=== PATIENT | female | born 1970 ===

== ENCOUNTER 2017-04-15 12:39 | Emergency (ER) | payer BC, OTHER ==
[2017-04-15 13:45] LABS: BASO # 0.1 K/uL (0.0-0.2); EOS % 0.6 % (0.0-4.0); HEMOGLOBIN 12.1 g/dL (12.0-16.0); LYMPH % 28.4 % (20.0-40.0); MEAN CELL VOLUME 82.4 fl (81.0-99.0); MEAN CORPUSCULAR HEMOGLOBIN 26.4 pg (27.0-31.0); MEAN PLATELET VOLUME 9.8 fl (7.2-11.7); MONO # 0.5 K/uL (0.0-0.8); MONO % 7.5 % (0.0-10.0); NEUT # 4.3 K/uL (1.8-7.0); NEUT % 62.5 % (50.0-75.0); NRBC % 0.3 % (0.0-0.0); RBC 4.61 Mil/uL (3.80-5.20); RED CELL DISTRIBUTION WIDTH 15.5 % (11.5-14.5); WHITE BLOOD COUNT 6.9 K/uL (4.8-10.8)
[2017-04-15 13:49] LABS: SQUAMOUS EPITHIAL 2 /hpf (0-5); URINE BILIRUBIN NEGATIVE (NEGATIVE); URINE BLOOD LARGE (NEGATIVE); URINE CLARITY CLEAR (Clear); URINE COLOR STRAW (YELLOW); URINE GLUCOSE (UA) NEG (Normal); URINE LEUKOCYTE ESTERASE NEG Leu/uL (Negative); URINE NITRATE NEGATIVE (NEGATIVE); URINE PROTEIN NEGATIVE (NEGATIVE); URINE UROBILINOGEN 0.2-1.0 mg/dL (0.2-1.0)
[2017-04-15 13:56] LABS: ALB/GLOB RATIO 1.2 (1.0-2.1); ALBUMIN 4.7 g/dL (3.5-5.0); ALT/SGPT 45 U/L (9-52); AST/SGOT 29 U/L (14-36); BLOOD UREA NITROGEN 13 mg/dl (7-17); CALCIUM 9.6 mg/dL (8.4-10.2); GFR AFRICAN-AMERICAN > 60; GFR NON-AFRICAN AMERICAN > 60
[2017-04-15 14:03] LABS: PROTHROMBIN TIME 10.9 Seconds (9.8-13.1)
[2017-04-15 14:04] LABS: PARTIAL THROMBOPLASTIN TIME 33.8 Seconds (25.6-37.1)
--- NOTE | 2017-04-15 15:07 | ED PDOC ---
HPI: General Adult Time Seen by Provider: 04/15/17 13:08 Chief Complaint (Nursing): Dizziness/Lightheaded Chief Complaint (Provider): Jaw Pain History Per: Patient History/Exam Limitations: no limitations Onset/Duration Of Symptoms: Sudden Onset Current Symptoms Are (Timing): Still Present Additional Complaint(s): Maggie Whaley is a 47 y/o female presenting to the ER on 04/15/2017 with complaints of bilateral jaw pain with radiation to her shoulders bilaterally onset yesterday. She denies any throat pain, difficulty swallowing, fever, or trauma. She did not take any pain medications prior to arrival. Past Medical History Reviewed: Historical Data, Nursing Documentation, Vital Signs Vital Signs: Last Vital Signs Temp 98.0 F 04/15/17 12:43 Pulse 82 04/15/17 12:43 Resp 16 04/15/17 12:43 BP 123/82 04/15/17 12:43 Pulse Ox 100 04/15/17 15:22 - Medical History PMH: Anxiety - Surgical History Surgical History: No Surg Hx - Family History Family History: States: Unknown Family Hx - Social History Current smoker - smoking cessation education provided: No Alcohol: None Drugs: Denies - Home Medications Home Medications: Ambulatory Orders Medication Instructions Recorded Naproxen [Naprosyn] 500 mg PO BID PRN #15 tablet 04/15/17 - Allergies Allergies/Adverse Reactions: Allergies Allergy/AdvReac Type Severity Reaction Status Date / Time No Known Allergies Allergy Verified 04/15/17 12:42 Review of Systems ROS Statement: Except As Marked, All Systems Reviewed And Found Negative Constitutional: Negative for: Fever ENT: Negative for: Throat Pain Musculoskeletal: Positive for: Shoulder Pain (bilat ), Other ((+) jaw pain bilat ) Neurological: Negative for: Weakness, Numbness Physical Exam - Reviewed Nursing Documentation Reviewed: Yes Vital Signs Reviewed: Yes - Physical Exam Appears: Positive for: Non-toxic, No Acute Distress Head Exam: Positive for: ATRAUMATIC, NORMOCEPHALIC Skin: Positive for: Normal Color. Negative for: Rash Eye Exam: Positive for: Normal appearance, EOMI, PERRL ENT: Positive for: Pharynx Is (clear ) Neck: Positive for: Normal, Painless ROM, Supple Cardiovascular/Chest: Positive for: Regular Rate, Rhythm. Negative for: Murmur Respiratory: Positive for: Normal Breath Sounds. Negative for: Wheezing, Respiratory Distress Gastrointestinal/Abdominal: Positive for: Normal Exam, Soft. Negative for: Tenderness Extremity: Positive for: Normal ROM. Negative for: Deformity, Swelling Neurologic/Psych: Positive for: Alert, Oriented. Negative for: Motor/Sensory Deficits - Laboratory Results Result Diagrams: 04/15/17 13:35 04/15/17 13:35 - ECG Interpretation Of ECG: NSR @ 75, IRBBB, no ST-T changes. O2 Sat by Pulse Oximetry: 100 Pulse Ox Interpretation: Normal Medical Decision Making Medical Decision Makin:08 Initial Impression- 47 y/o female with jaw pain Initial Plan- * EKG * Urine Dip * Urine Preg * Toradol 15 mg IV 15:21 CT has been ordered because pt is now complaining of pain down both arms for the past month. 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 Additionally, pt states sometimes she wakes up with numbness and pain in both arms. 16:05 CT CERVICAL SPINE FINDINGS: VERTEBRAE: No evidence of acute compression fracture nor retropulsed fragments. Vertebral bodies exhibit normal stature. There is slight straightening of the normal cervical lordosis which could be due to patient positioning gantry however underlying element of muscle spasm may contribute. DISCS/SPINAL CANAL/NEURAL FORAMINA: Disc space heights maintained. No disc herniations. Small broad-based disc bulge ridge complex is seen at the C6-C7 and C5-C6 levels. Changes do not result in significant canal stenosis nor cord compression. Exit foramina are adequate. PARASPINAL SOFT TISSUES: Prevertebral and paraspinal soft tissues grossly unremarkable. . OTHER FINDINGS: Lung apices are clear. IMPRESSION: No acute compression fractures no retropulsed fragments. Minimal broad-based disc bulge ridge complex is seen at the C5-C6 and C6-C7 levels as above. No evidence of canal compromise nor cord compression. No evidence of foraminal stenosis. Documented by Chandni Pino, acting as a scribe for Goldie Dave MD All medical record entries made by the Scribe were at my direction and personally dictated by me. I have reviewed the chart and agree that the record accurately reflects my personal performance of the history, physical exam, medical decision making, and the department course for this patient. I have also personally directed, reviewed, and agree with the discharge instructions and disposition. Disposition - Clinical Impression Clinical Impression: Mandibular pain - Patient ED Disposition Is Patient to be Admitted: No - Disposition Referrals: Enoch Moreland MD [Family Provider] - Disposition: Routine/Home Disposition Time: 15:07 Condition: STABLE Prescriptions: Naproxen [Naprosyn] 500 mg PO BID PRN #15 tablet PRN Reason: Pain, Moderate (4-7) Instructions: Musculoskeletal Pain (ED) Print Language: BERMUDIAN
--- NOTE | 2017-04-15 16:00 | CT ---
PROCEDURE: CT scan of the cervical spine dated 04/15/2017 HISTORY: Bilateral arm pain. . . COMPARISON: None available. TECHNIQUE: Contiguous helical/transaxial l computed tomography images were obtained of the cervical spine without the use of intravenous contrast. Coronal and sagittal reformatted images were created and reviewed. Radiation dose: Total exam DLP = 351.69 mGy-cm. This CT exam was performed using one or more of the following dose reduction techniques: Automated exposure control, adjustment of the mA and/or kV according to patient size, and/or use of iterative reconstruction technique. FINDINGS: VERTEBRAE: No evidence of acute compression fracture nor retropulsed fragments. Vertebral bodies exhibit normal stature. There is slight straightening of the normal cervical lordosis which could be due to patient positioning gantry however underlying element of muscle spasm may contribute. DISCS/SPINAL CANAL/NEURAL FORAMINA: Disc space heights maintained. No disc herniations. Small broad-based disc bulge ridge complex is seen at the C6-C7 and C5-C6 levels. Changes do not result in significant canal stenosis nor cord compression. Exit foramina are adequate. PARASPINAL SOFT TISSUES: Prevertebral and paraspinal soft tissues grossly unremarkable. . OTHER FINDINGS: Lung apices are clear. IMPRESSION: No acute compression fractures no retropulsed fragments. Minimal broad-based disc bulge ridge complex is seen at the C5-C6 and C6-C7 levels as above. No evidence of canal compromise nor cord compression. No evidence of foraminal stenosis.
[2017-04-15 16:32] VITALS: BP 108/65; PULSE 65; RESP 18; TEMP 98; O2SAT 99
--- NOTE | 2017-04-17 11:50 | CARD ---
APPROVED REPORT EKG Measurement Heart [id number] <Conclusion> Normal sinus rhythm Incomplete right bundle branch block Borderline ECG
== END 2017-04-15 16:32 | disposition home or self-care (01) ==
LOC: H.ER 12:39
DX: R68.84 Jaw pain (principal); R42 Dizziness and giddiness

== ENCOUNTER 2019-01-27 15:20 | Emergency (ER) | payer BC, OTHER ==
[2019-01-27 15:32] VITALS: RESP 19; TEMP 97.7; O2SAT 100
[2019-01-27 17:16] LABS: BASO % 0.7 % (0.0-2.0); EOS # 0.1 K/uL (0.0-0.7); EOS % 0.9 % (0.0-4.0); HEMOGLOBIN 12.7 g/dL (12.0-16.0); LYMPH # 1.8 K/uL (1.0-4.3); LYMPH % 30.4 % (20.0-40.0); MEAN CELL VOLUME 87.1 fl (81.0-99.0); MEAN CORPUSCULAR HEMOGLOBIN 28.9 pg (27.0-31.0); MEAN CORPUSCULAR HGB CONC 33.2 g/dL (33.0-37.0); MEAN PLATELET VOLUME 10.1 fl (7.2-11.7); MONO # 0.4 K/uL (0.0-0.8); MONO % 7.5 % (0.0-10.0); NEUT # 3.6 K/uL (1.8-7.0); NEUT % 60.5 % (50.0-75.0); NRBC % 0.2 % (0.0-0.0); RBC 4.39 Mil/uL (3.80-5.20); RED CELL DISTRIBUTION WIDTH 13.9 % (11.5-14.5); WHITE BLOOD COUNT 5.9 K/uL (4.8-10.8)
--- NOTE | 2019-01-27 17:22 | ED PDOC ---
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 Patient notes she has never seen her PMD for this issue, and otherwise denies headache, dizziness, weakness, any other numbness, and additional complaints. PMD: Enoch Moreland NIHSS Stroke Scale - Date/Time Evaluation Performed Date Performed: 01/27/19 Time Performed: 15:40 When Was NIHSS Performed: Baseline - How Severe is the Stroke Level of Consciousness: 0=Alert LOC to Questions: 0=Both comments correct LOC to commands: 0=Obeys both correctly Best Gaze: 0=Normal Visual: 0=No visual loss Facial: 0=Normal Motor Arm - Left: 0=No drift Motor Arm - Right: 0=No drift Motor Leg - Left: 0=No drift Motor Leg - Right: 0=No drift Limb Ataxia: 0=Absent Sensory: 0=Normal Best Language: 0=No aphasia Dysarthia: 0=Normal articulation Extinction & Inattention (Neglect): 0=Normal, no object Score: 0 Past Medical History Reviewed: Historical Data, Nursing Documentation, Vital Signs Vital Signs: Last Vital Signs Temp 97.7 F 01/27/19 15:29 Pulse 65 01/27/19 15:29 Resp 19 01/27/19 15:29 BP 132/87 01/27/19 15:29 Pulse Ox 100 01/27/19 15:29 - Medical History PMH: Anxiety Other PMH: ovarian cysts - Surgical History Other surgeries: ovarian cyst removal - Family History Family History: States: Unknown Family Hx - Social History Current smoker - smoking cessation education provided: No Alcohol: None Drugs: Denies - Home Medications Home Medications: Ambulatory Orders Medication Instructions Recorded Naproxen [Naprosyn] 500 mg PO BID PRN #15 tablet 04/15/17 - Allergies Allergies/Adverse Reactions: Allergies Allergy/AdvReac Type Severity Reaction Status Date / Time No Known Allergies Allergy Verified 04/15/17 12:42 Review of Systems ROS Statement: Except As Marked, All Systems Reviewed And Found Negative Musculoskeletal: Positive for: Hand Pain (bilateral, intermittent) Neurological: Positive for: Numbness (to bilateral hands, intermittent ). Negative for: Weakness, Headache, Dizziness Physical Exam - Reviewed Nursing Documentation Reviewed: Yes Vital Signs Reviewed: Yes - Physical Exam Appears: Positive for: No Acute Distress Head Exam: Positive for: ATRAUMATIC, NORMAL INSPECTION, NORMOCEPHALIC Skin: Positive for: Normal Color, Warm. Negative for: Rash Eye Exam: Positive for: EOMI, Normal appearance, PERRL Neck: Positive for: Normal, Painless ROM, Supple Cardiovascular/Chest: Positive for: Regular Rate, Rhythm Respiratory: Positive for: Normal Breath Sounds. Negative for: Respiratory Distress Gastrointestinal/Abdominal: Positive for: Normal Exam, Soft. Negative for: Tenderness Back: Positive for: Normal Inspection Extremity: Positive for: Normal ROM (all extremities) Neurological/Psych: Positive for: Awake, Alert, Symmetric/Intact Strength (5/5 x4 extremities), Oriented (x3), Gait (steady, unassisted), Cerebellar Tests (intact), rn hemodialysis charge II-XII (intact). Negative for: Motor/Sensory Deficits, Facial Dr oop - Laboratory Results Result Diagrams: 01/27/19 17:10 01/27/19 17:10 - ECG O2 Sat by Pulse Oximetry: 100 (RA) Pulse Ox Interpretation: Normal Medical Decision Making Medical Decision Making: Time: 1637 Initial Impression: bilateral intermittant hand numbness, r/o stroke, rule out diabetes, electrolyte abnormality Initial Plan: --CT head without contrast --CMP --CBC with differential --Urine culture --Urinalysis --Patient advised to follow up with neurologist for further evaluation 1852 CT head: Impression: no acute intracranial abnormality. If there is a persistent focal neurological deficit and an ongoing clinical concern for acute infarction, an MRI of the brain without intravenous contrast would be a more sensitive modality for evaluation of hyperacute/acute ischemic infarction 2010 on reevaluation pt sleeping in no distress pt and daughter at bedside aware of results Labs reviewed for BUN elevated at 22. Urine does not appear to be infected given normal WBC and rare bacteria. Patient to be discharged with neuro outpatient follow up. Return parameters and plan discussed with both patient and daughter who both verbalize agreement and understanding. Scribe Attestation: Documented by Linda Galdamez, acting as a scribe for Ayad Ware MD. Provider Scribe Attestation: All medical record entries made by the Scribe were at my direction and personally dictated by me. I have reviewed the chart and agree that the record accurately reflects my personal performance of the history, physical exam, medical decision making, and the department course for this patient. I have also personally directed, reviewed, and agree with the discharge instructions and disposition. Disposition - Clinical Impression Clinical Impression: Hand paresthesia - Patient ED Disposition Is Patient to be Admitted: No Counseled Patient/Family Regarding: Studies Performed, Diagnosis, Need For Followup - Disposition Referrals: Director Of Flight Operations Service [Outside] Anne Camarillo MD [Medical Doctor] - Disposition: Routine/Home Disposition Time: 20:15 Condition: IMPROVED Additional Instructions: follow up with outpatient neurologist in 1-2 days also follow up with Dr Moreland return to the ED with any worsening or concerning symptoms Instructions: Paresthesias (DC) Forms: [employer] (Setswana), [employer] (Martiniquais), [facility] ED School/Work Excuse Print Language: BHUTANESE
[2019-01-27 17:30] LABS: SQUAMOUS EPITHIAL 6 /hpf (0-5); URINE BACTERIA RARE (<OCC); URINE BILIRUBIN NEGATIVE (NEGATIVE); URINE BLOOD SMALL (NEGATIVE); URINE CLARITY SLIGHTY-CLOUDY (Clear); URINE COLOR YELLOW (YELLOW); URINE GLUCOSE (UA) NEG (NEGATIVE); URINE LEUKOCYTE ESTERASE SMALL Leu/uL (Negative); URINE PROTEIN NEGATIVE (NEGATIVE); URINE UROBILINOGEN 0.2-1.0 mg/dL (0.2-1.0)
[2019-01-27 17:36] LABS: ALB/GLOB RATIO 1.2 (1.0-2.1); ALBUMIN 4.4 g/dL (3.5-5.0); ALT/SGPT 43 U/L (9-52); AST/SGOT 30 U/L (14-36); BLOOD UREA NITROGEN 22 mg/dl (7-17); CALCIUM 9.6 mg/dL (8.4-10.2); GFR NON-AFRICAN AMERICAN > 60
--- NOTE | 2019-01-27 18:56 | CT ---
Date of service: 01/27/2019 PROCEDURE: CT HEAD WITHOUT CONTRAST. HISTORY: hand numbness COMPARISON: None available. TECHNIQUE: Axial computed tomography images were obtained through the head/brain without intravenous contrast. Radiation dose: Total exam DLP = 863.67 mGy-cm. This CT exam was performed using one or more of the following dose reduction techniques: Automated exposure control, adjustment of the mA and/or kV according to patient size, and/or use of iterative reconstruction technique. FINDINGS: HEMORRHAGE: No intracranial hemorrhage. BRAIN: [place]-white matter differentiation is preserved. There is no mass, mass effect or abnormal extra-axial fluid collection. There is no territorial infarction. The midline sagittal structures are normal. VENTRICLES: The ventricles are normal in size, shape and configuration. CALVARIUM: There is no calvarial fracture or extracranial soft tissue swelling. PARANASAL SINUSES: Predominantly clear. MASTOID AIR CELLS: Predominantly clear. OTHER FINDINGS: None. IMPRESSION: No acute intracranial abnormality. If there is a persistent focal neurologic deficit and an ongoing clinical concern for acute infarction, an MRI of the brain without intravenous contrast would be a more sensitive modality for evaluation of hyperacute/acute ischemic infarction.
[2019-01-27 20:52] VITALS: BP 122/83; PULSE 57
== END 2019-01-27 20:12 | disposition home or self-care (01) ==
LOC: H.ER 15:20
DX: R20.2 Paresthesia of skin (principal); F41.9 Anxiety disorder, unspecified